=== PATIENT | female | born 1990 | race Caucasian/White ===

== ENCOUNTER 2020-06-11 16:38 | Emergency (ER) | payer MEDICAID ==
--- NOTE | 2020-06-11 17:20 | NUR ---
NO ANSWER FROM LOBBY.
== END 2020-06-11 17:21 | disposition left against medical advice (07) ==
LOC: ED 17:10
DX: F41.9 Anxiety disorder, unspecified (principal); F32.9 Major depressive disorder, single episode, unspecified; Z53.21 Procedure and treatment not carried out due to patient leaving prior to being seen by health care provider

== ENCOUNTER 2020-06-26 12:01 | Observation (INO) | payer MEDICAID ==
[~2020-06-26] VITALS: Ht 157.5 cm; Wt 55.8 kg
[2020-06-26 12:05] VITALS: BP 124/73
--- NOTE | 2020-06-26 12:26 | NUR ---
PT CAME IN CO OF SUICIDAL THOUGHTS. AT THIS MOMENT SHE STATES "I DO NOT WISH TO BE . I WAS JUST TO BE BETTER. MAGGIE HAD THESE THOUGHTS FOR ALMOST A YEAR. MAGGIE HAD THOUGHTS LIKE THIS IN THE PAST BUT I HAVE NEVER DONE ANYTHING TO PREPARE FOR END OF MY LIFE". PT ACCOMPANIED BY FAMILY MEMBER. MD IS BEDSIDE. ALL PT BELONGINGS HAVE BEEN PLACED IN SECURITY LOCKER. THERE IS A PSA OUTSIDE OF ROOM
[2020-06-26 12:50] LABS: HCG UR SG 1.022 (1.003-1.030); MICROSCOPIC AUTO
[2020-06-26 13:02] LABS: AMPHETAMINE SCREEN, URINE Negative (Negative); BARBITURATE SCREEN, URINE Negative (Negative); BENZODIAZEPINE SCREEN, URINE Negative (Negative); CANNABINOID SCREEN, URINE Negative (Negative); COCAINE SCREEN, URINE Negative (Negative); METHADONE SCREEN, URINE Negative (Negative); OPIATE SCREEN, URINE Negative (Negative)
[2020-06-26 13:04] LABS: BASOPHILS % (AUTO) 1 % (0-1); EOSINOPHILS % (AUTO) 1 % (1-7); LYMPHOCYTES % (AUTO) 35 % (22-44); MEAN CORPUSCULAR HEMOGLOBIN 29.4 pg (27.0-34.8); MEAN PLATELET VOLUME 7.6 fL (7.4-10.4); MONOCYTES % (AUTO) 9 % (2-9); NEUTROPHILS % (AUTO) 54 % (42-75); PLATELET COUNT 172 x10^3/uL (130-400); RED BLOOD COUNT 4.79 x10^6/uL (3.82-5.3); RED CELL DISTRIBUTION WIDTH 13.2 % (9.6-15.2)
[2020-06-26 13:07] LABS: MD NO
[2020-06-26 13:13] LABS: ALANINE AMINOTRANSFERASE 20 U/L (12-78); ALBUMIN 4.4 g/dL (3.4-5.0); ANION GAP 6 mmol/L (5-15); CALCIUM 9.3 mg/dL (8.5-10.1); CHLORIDE 108 mmol/L (98-107)
[2020-06-26 13:17] LABS: ALKALINE PHOSPHATASE 42 U/L (45-117); BILIRUBIN,TOTAL 0.4 mg/dL (0.2-1.0); CREATININE 0.75 mg/dL (0.55-1.02); TOTAL PROTEIN 7.5 g/dL (6.4-8.2)
[2020-06-26 13:18] LABS: SALICYLATE LEVEL < 1.7 mg/dL (2.8-20.0)
--- NOTE | 2020-06-26 13:23 | NUR ---
IWONA ANTUNEZ IS BEDSIDE FOR ASSESSMENT
--- NOTE | 2020-06-26 14:04 | NUR ---
COVID SWAB COLLECTED AND WALKED TO LAB
--- NOTE | 2020-06-26 15:23 | NUR ---
REPORT GIVEN TO OPAL BHATIA AT [facility]
[2020-06-26] MEDS ORDERED: CLON-364 PO (17:44)
[2020-06-26] MEDS ORDERED: SERT50TA28 PO (17:44)
[2020-06-26] MEDS ORDERED: PROPRANOLOL 10 MG TABLET PO SCH (21:00)
[2020-06-27] MEDS ORDERED: SERTRALINE 50MG TABLET PO SCH (09:00)
[2020-06-27] MEDS ORDERED: PALIPERIDONE 6 MG TAB.ER.24 PO SCH (09:00)
== END 2020-06-26 13:45 | disposition home or self-care (01) ==
LOC: ED 13:42 → EDIP 13:43 → ED 14:39
PROVIDERS: ADMIT Emergency Medicine; ATTEND Emergency Medicine
DX: F20.9 Schizophrenia, unspecified (principal); Z20.822 Contact with and (suspected) exposure to COVID-19; R45.851 Suicidal ideations; F41.8 Other specified anxiety disorders; Z79.899 Other long term (current) drug therapy
CPT/HCPCS: 36415; 80053; 80299; 80307; 80320; 80329; 81001; 81025; 85025; 87086; 87426; 99284; G0378; G0480

== ENCOUNTER 2020-06-26 14:22 | Inpatient (IN) | payer MEDICAID ==
[~2020-06-26] VITALS: Ht 157.5 cm; Wt 56.9 kg
[2020-06-26 15:57] VITALS: BP 126/85
[2020-06-26] MEDS ORDERED: POLYETHYLENE GLYCOL 17 GM PACKET PO PRN (17:30)
[2020-06-26] MEDS ORDERED: ACETAMINOPHEN 325 MG TABLET PO PRN (17:30)
[2020-06-26] MEDS ORDERED: DOCUSATE 100 MG CAPSULE PO PRN (17:30)
[2020-06-26] MEDS ORDERED: ONDANSETRON ODT 4 MG PO PRN (17:30)
[2020-06-26] MEDS ORDERED: BISACODYL 10 MG SUPP PR PRN (17:30)
[2020-06-26] MEDS ORDERED: CLON-364 PO (17:44)
[2020-06-26] MEDS ORDERED: SERT50TA28 PO (17:44)
[2020-06-26 18:16] LABS: FREE T4 (FREE THYROXINE) 1.09 ng/dL (0.76-1.46); LDL/HDL RATIO 1.8 (0.5-3.0)
[2020-06-26 19:09] VITALS: BP 113/78
[2020-06-26] MEDS ORDERED: PROPRANOLOL 10 MG TABLET PO SCH (21:00)
[2020-06-27 05:54] LABS: ANION GAP 5 mmol/L (5-15); CALCIUM 9.1 mg/dL (8.5-10.1); CHLORIDE 107 mmol/L (98-107)
[2020-06-27 05:59] LABS: ALANINE AMINOTRANSFERASE 18 U/L (12-78); ALKALINE PHOSPHATASE 42 U/L (45-117); BILIRUBIN,TOTAL 0.7 mg/dL (0.2-1.0); CREATININE 0.71 mg/dL (0.55-1.02)
[2020-06-27 06:18] LABS: BASOPHILS % (AUTO) 1 % (0-1); EOSINOPHILS % (AUTO) 3 % (1-7); LYMPHOCYTES % (AUTO) 36 % (22-44); MEAN CORPUSCULAR HEMOGLOBIN 29.6 pg (27.0-34.8); MEAN CORPUSCULAR HGB CONC 33.3 g/dL (32.4-35.8); MEAN PLATELET VOLUME 7.8 fL (7.4-10.4); MONOCYTES % (AUTO) 9 % (2-9); NEUTROPHILS % (AUTO) 52 % (42-75); PLATELET COUNT 169 x10^3/uL (130-400); RED BLOOD COUNT 4.64 x10^6/uL (3.82-5.3); RED CELL DISTRIBUTION WIDTH 13.4 % (9.6-15.2)
[2020-06-27 06:30] LABS: MD NO
[2020-06-27] MEDS: SERTRALINE 50MG TABLET PO SCH (07:47)
[2020-06-27 08:07] VITALS: BP 112/74
[2020-06-27] MEDS ORDERED: PALIPERIDONE 6 MG TAB.ER.24 PO SCH (09:00)
[2020-06-27 19:12] VITALS: BP 108/69
[2020-06-27] MEDS: ZIPRASIDONE 20MG CAPSULE PO SCH (20:51)
[2020-06-28 07:48] VITALS: BP 115/74
[2020-06-28] MEDS: SERTRALINE 50MG TABLET PO SCH (08:38)
[2020-06-28 19:53] VITALS: BP 115/77
[2020-06-28] MEDS: ZIPRASIDONE 20MG CAPSULE PO SCH (20:45)
[2020-06-29 07:05] VITALS: BP 111/72
[2020-06-29] MEDS: SERTRALINE 50MG TABLET PO SCH (08:57)
[2020-06-29 18:41] VITALS: BP 113/67
[2020-06-29] MEDS: ZIPRASIDONE 20MG CAPSULE PO SCH (22:11)
[2020-06-30 07:27] VITALS: BP 111/71
[2020-06-30] MEDS: SERTRALINE 50MG TABLET PO SCH (08:22)
[2020-06-30 19:44] VITALS: BP 112/72
[2020-06-30] MEDS: ZIPRASIDONE 20MG CAPSULE PO SCH (21:24)
[2020-07-01 07:07] VITALS: BP 113/68
[2020-07-01] MEDS: SERTRALINE 100MG TABLET PO SCH (09:01)
[2020-07-01 19:33] VITALS: BP 117/74
[2020-07-01 19:48] VITALS: BP 117/76
[2020-07-01] MEDS: ZIPRASIDONE 20MG CAPSULE PO SCH (20:33)
[2020-07-02 07:05] VITALS: BP 110/68
[2020-07-02] MEDS: SERTRALINE 100MG TABLET PO SCH (08:49)
[2020-07-02 19:24] VITALS: BP 115/69
[2020-07-02] MEDS: ZIPRASIDONE 20MG CAPSULE PO SCH (21:02)
[2020-07-03 08:19] VITALS: BP 105/69
[2020-07-03] MEDS: SERTRALINE 100MG TABLET PO SCH (08:20)
[2020-07-03] MEDS ORDERED: SERT100T32 PO (14:48)
[2020-07-03] MEDS ORDERED: ZIPR20CA2 PO (14:48)
== END 2020-07-03 15:15 | disposition home or self-care (01) | DRG 885 ==
LOC: 3E 15:53
PROVIDERS: ADMIT Psychiatry & Neurology Psychosomatic Medicine; ATTEND Psychiatry & Neurology Psychosomatic Medicine
DX: F33.2 Major depressive disorder, recurrent severe without psychotic features (principal); F41.0 Panic disorder [episodic paroxysmal anxiety]; F41.1 Generalized anxiety disorder; F29 Unspecified psychosis not due to a substance or known physiological condition; F88 Other disorders of psychological development; Z79.899 Other long term (current) drug therapy; Z88.8 Allergy status to other drugs, medicaments and biological substances
CPT/HCPCS: 36415; 71045; 80053; 80061; 82607; 84439; 84443; 85025; 93005